=== PATIENT | female | born 1985 | race African-American/Black ===

== ENCOUNTER 2016-06-26 09:10 | Emergency (ER) | payer OTHER, MEDICAID ==
[~2016-06-26] VITALS: Ht 170.2 cm; Wt 154.0 kg
[~2016-06-26 09:10] MED LIST: CHLO.12%30 SSP; HYDR-3533 PO; MMW SWISH-SWAL; PENI500T PO
[2016-06-26 09:14] VITALS: BP 146/102; PULSE 89; RESP 18; TEMP 97.9; O2SAT 98
[2016-06-26] MEDS ORDERED: TRAM50TA PO (09:27)
[2016-06-26] MEDS ORDERED: CYCL1TAB29 PO (09:27)
[2016-06-26] MEDS ORDERED: MOBI7.5T PO (09:27)
[2016-06-26] MEDS ORDERED: HYDR-3535 PO (09:38)
[2016-06-26] MEDS ORDERED: HYDROmorphone HCL PF 1 MG/ML VIAL IM ONE (09:45)
[2016-06-26] MEDS ORDERED: ONDANSETRON HCL 4 MG/2 ML VIAL IM ONE (09:45)
--- NOTE | 2016-06-26 09:46 | PD ---
HPI Chief Complaint: Back/ Neck Pain or Injury Time Seen by Provider: 09:23 Travel History International Travel<30 days: No Contact w/Intl Traveler<30days: No Traveled to known affect area: No History of Present Illness HPI This 30-year-old female is complaining of low back pain. She has a history of back pain. She had a Workmen's Compensation injury in July. 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 She had an MRI in March which showed bulging disks. She has been seeing an orthopedic doctor in [place]. She uses a back brace. She has tramadol, Flexeril and low back. She has been taking the medication. She has been having increasing pain since yesterday. The medication does not seem to be helping. She says that the tramadol has not seemed to be very effective for her. The pain shoots down her left leg. She says that her orthopedic doctor is going to schedule her for some injections in the back PFSH Past Medical History Hx Anticoagulant Therapy: No Blood Disorders: No Cardiovascular Problems: No Chemotherapy: No Cerebrovascular Accident: No Diabetes: No Diminished Hearing: No Hypertension: Yes Respiratory: No Immunizations Current: Yes Tetanus Vaccination: Unknown ?: Not LMP: 06/21/2016 : 5 Para: 3 Miscarriage: 11 Past Surgical History Section: Yes (X3) Cholecystectomy: Yes Hysterectomy: No Social History Alcohol Use: Yes (OCCASIONAL) Tobacco Use: No Substance Use: No Allergies-Medications (Allergen,Severity, Reaction): Coded Allergies: Percocet (Verified Allergy, Unknown, RASH, 06/26/16) Reported Meds & Prescriptions Reported Meds & Active Scripts Active Lortab (Hydrocodone-Acetaminophen) 10-325 Mg Tab 1 Tab PO Q4H PRN Reported Mobic (Meloxicam) 7.5 Mg Tab 7.5 Mg PO DAILY Flexeril (Cyclobenzaprine HCl) 10 Mg Tab 10 Mg PO TID Tramadol (Tramadol HCl) 50 Mg Tab 50 Mg PO Q6H PRN Review of Systems General / Constitutional: No: Fever, Chills Eyes: No: Diploplia, Blurred Vision HENT: Positive: Headaches Cardiovascular: No: Chest Pain or Discomfort, Palpitations Respiratory: No: Cough, Shortness of Breath Gastrointestinal: No: Vomiting, Diarrhea Genitourinary: No: Urgency Musculoskeletal: Positive: Pain Skin: No Rash, No Itching Neurologic: No: Weakness, Focal Abnormalities Hematologic/Lymphatic: No: Easy Bruising Physical Exam Narrative GENERAL: Well-developed female SKIN: Warm and dry. There is some hyperpigmentation of the skin of the face HEAD: Atraumatic. Normocephalic. EYES: Pupils equal and round. No scleral icterus. No injection or drainage. ENT: No nasal bleeding or discharge. Mucous membranes pink and moist. NECK: Trachea midline. No JVD. CARDIOVASCULAR: Regular rate and rhythm. No murmur appreciated. RESPIRATORY: No accessory muscle use. Clear to auscultation. Breath sounds equal bilaterally. GASTROINTESTINAL: Abdomen soft, non-tender, nondistended. Hepatic and splenic margins not palpable. MUSCULOSKELETAL: No obvious deformities. No clubbing. No cyanosis. No edema. She has some low back tenderness. She has pain with movement. Straight leg raising is painful bilaterally at 30.Good strength in plantar and dorsi flexion. she says the left leg has less sensation that the right NEUROLOGICAL: Awake and alert. No obvious cranial nerve deficits. Motor grossly within normal limits. Normal speech. PSYCHIATRIC: Appropriate mood and affect; insight and judgment normal. Data Data Last Documented VS Vital Signs Date Time Temp Pulse Resp B/P Pulse Ox O2 Delivery O2 Flow Rate FiO2 06/26/16 09:14 97.9 89 18 146/102 98 Orders Hydromorphone Pf Inj (Dilaudid Pf Inj) (06/26/16 09:45) Ondansetron Inj (Zofran Inj) (06/26/16 09:45) MDM Medical Decision Making Medical Screen Exam Complete: Yes Emergency Medical Condition: Yes Medical Record Reviewed: Yes Differential Diagnosis Differential includes HNP, exacerbation of chronic back pain Narrative Course Patient had an MRI in March. She is seeing an orthopedist. She does appear quite uncomfortable now on the tramadol has not been helping her. I will write a prescription for some Lortab and follow-up with her orthopedic doctor in [place] Diagnosis Primary Impression: Acute exacerbation of chronic low back pain Scripts Hydrocodone-Acetaminophen (Lortab)10-325 Mg Tab1 Tab PO Q4H PRN (PAIN) #30 TAB Ref 0 Prov:Macario Miller MD 06/26/16 Disposition: 01 DISCHARGE HOME Condition: Stable Macario Miller MD Jun 26, 2016 09:46
[2016-06-26 10:39] VITALS: BP 180/111
== END 2016-06-26 10:44 | disposition home or self-care (01) ==
LOC: PHED 09:10
DX: M54.5 Low back pain (principal); I10 Essential (primary) hypertension
CPT/HCPCS: 96372; 99283; J1170; J2405

== ENCOUNTER 2016-07-24 20:51 | Emergency (ER) | payer MEDICAID, OTHER ==
[~2016-07-24] VITALS: Ht 170.2 cm; Wt 154.6 kg
[~2016-07-24 20:51] MED LIST changes: -CHLO.12%30 SSP; +CYCL1TAB29 PO; -HYDR-3533 PO; +HYDR-3535 PO; -MMW SWISH-SWAL; +MOBI7.5T PO; -PENI500T PO; +TRAM50TA PO
[2016-07-24 21:00] VITALS: BP 170/109; PULSE 90; RESP 18; TEMP 98.6; O2SAT 99
[2016-07-24] MEDS ORDERED: ERYTHROMYCIN 0.5% OPTH OINT 3.5 GM TUBO RIGHT EYE ONE (21:45)
[2016-07-24] MEDS ORDERED: ERYTOIN10 RIGHT EYE (22:04)
--- NOTE | 2016-07-24 22:05 | PD ---
HPI Chief Complaint: Eye Problems/Injury Time Seen by Provider: 21:15 Travel History International Travel<30 days: No Contact w/Intl Traveler<30days: No Traveled to known affect area: No History of Present Illness HPI Patient's a 30 year female who presents emergency for evaluation of right eye burning. Patient states she woke up this morning and her eye was crusted, since that time she's had photophobia and a burning sensation. Patient denies any fever, chills, nausea, vomiting, chest pain, shortness of breath, headaches. She denies any visual changes, patient does not wear contact lenses , she states she was told she had high blood pressure in the past, she is not on any medications currently. PFSH Past Medical History Hx Anticoagulant Therapy: No Blood Disorders: No Cardiovascular Problems: No Chemotherapy: No Cerebrovascular Accident: No Diabetes: No Diminished Hearing: No Hypertension: Yes Respiratory: No Immunizations Current: Yes ?: Not LMP: LAST WEEK : 5 Para: 3 Miscarriage: 11 Past Surgical History Section: Yes (X3) Cholecystectomy: Yes Hysterectomy: No Social History Alcohol Use: Yes (OCCASIONAL) Tobacco Use: No Substance Use: No Allergies-Medications (Allergen,Severity, Reaction): Coded Allergies: Percocet (Verified Allergy, Unknown, RASH, 07/24/16) Reported Meds & Prescriptions Reported Meds & Active Scripts Active Reported Tramadol (Tramadol HCl) 50 Mg Tab 50 Mg PO Q6H PRN Review of Systems Except as stated in HPI: all other systems reviewed are Neg Eyes: Positive: Photophobia, Redness, Pain (burning pain), No: Diploplia, Blurred Vision, Foreign Body Sensation, Visual changes Physical Exam Narrative GENERAL: Well-nourished, well-developed patient. SKIN: Warm and dry. HEAD: Normocephalic. EYES: No scleral icterus. Mild injection in the right eye, pupil is equal, round, reactive. Fluorescein eye exam did not reveal any abrasions, ulcerations or dendritic lesions. Extraocular movements are intact. Cornea is clear. NECK: Supple, trachea midline. No JVD or lymphadenopathy. CARDIOVASCULAR: Regular rate and rhythm without murmurs, gallops, or rubs. RESPIRATORY: Breath sounds equal bilaterally. No accessory muscle use. GASTROINTESTINAL: Abdomen soft, non-tender, nondistended. MUSCULOSKELETAL: No cyanosis, or edema. BACK: Nontender without obvious deformity. No CVA tenderness. Data Data Last Documented VS Vital Signs Date Time Temp Pulse Resp B/P Pulse Ox O2 Delivery O2 Flow Rate FiO2 07/24/16 21:00 98.6 90 18 170/109 99 Orders Erythromycin 0.5% Opth Oint (Ilotycin 0. (07/24/16 21:45) [facility] Medical Decision Making Medical Screen Exam Complete: Yes Emergency Medical Condition: Yes Interpretation(s) Vital Signs Date Time Temp Pulse Resp B/P Pulse Ox O2 Delivery O2 Flow Rate FiO2 07/24/16 21:00 98.6 90 18 170/109 99 Differential Diagnosis Scleritis versus angle closure glaucoma versus iritis versus conjunctivitis versus other Narrative Course Patient is a 30 year old female who presented to emergency room for evaluation of right eye burning that started this morning upon awakening. Right eye is mildly erythematous, no drainage noted, no abrasions, ulcerations, dendritic lesions. Vision is intact. Patient does not wear contact lenses. Discussed with my attending physician who also evaluated patient. Paged the on-call oven laborer, Dr. Reese who recommended erythromycin ointment and follow-up in the office. Patient was given a dose of erythromycin ointment in the emergency room, she will be provided with a prescription for the same. She is encouraged to follow-up with Dr. Reese in his office tomorrow. Mandatory referral will be made for her. Patient was advised to come back to emergency department for any new or worsening symptoms or if she was unable to be evaluated by the oven laborer. Patient is stable for discharge. Diagnosis Primary Impression: Photophobia, right eye Additional Impression: Conjunctivitis Qualified Code: H10.9 - Conjunctivitis of right eye, unspecified conjunctivitis type Referrals: Syed Bright MD 1 day Call the office in the morning to schedule a follow-up appointment Additional Instructions: Follow-up with Dr. Dangelo tomorrow Use antibiotic ointment as directed Return to emergency department for any new or worsening symptoms or if you are unable to follow-up with a specialist and need to be reevaluated Med/Other Pt SpecificInfo: Prescription(s) given Scripts Erythromycin Opth Oint 5 Mg/Gm Oint1 Applic RIGHT EYE QID #1 TUBE Ref 0 Prov:Marlene Mcmanus 07/24/16 Disposition: 01 DISCHARGE HOME Condition: Stable YonathanMarleneYareli ARNP Jul 24, 2016 22:05
== END 2016-07-24 22:21 | disposition home or self-care (01) ==
LOC: PHEFT 20:51
DX: H53.149 Visual discomfort, unspecified (principal); H10.9 Unspecified conjunctivitis; I10 Essential (primary) hypertension
CPT/HCPCS: 99283

== ENCOUNTER 2016-10-14 12:09 | Emergency (ER) | payer OTHER ==
[~2016-10-14] VITALS: Ht 170.2 cm; Wt 154.0 kg
[~2016-10-14 12:09] MED LIST changes: -CYCL1TAB29 PO; +ERYTOIN10 RIGHT EYE; -HYDR-3535 PO; -MOBI7.5T PO
[2016-10-14 12:15] VITALS: BP 145/97; PULSE 91; RESP 16; TEMP 98.4; O2SAT 100
[2016-10-14] MEDS ORDERED: SODIUM CHLOR 0.9% 1000 ML INJ 1,000 ML IV SCH (12:38)
--- NOTE | 2016-10-14 12:43 | PD ---
HPI Chief Complaint: GI Complaint Time Seen by Provider: 12:39 Travel History International Travel<30 days: No Contact w/Intl Traveler<30days: No Traveled to known affect area: No History of Present Illness HPI Patient comes in complaining of left upper quadrant cramping abdominal pain that began last night. Patient reports associated nausea, vomiting, and diarrhea. Patient denies anything making it better or worse. Patient reports 4 episodes of loose stool and 2 episodes of vomiting. Patient denies any blood in vomit or stool. Vomit is nonbilious. Denies any recent antibiotic use. Patient did note some blood on the toilet paper after voiding last night 2 episodes but denies being on her period currently or any since. Patient states she did put a pad in today but has had no blood or other discharge on it. Denies any chest pain, shortness breath, fevers, diaphoresis, headaches, numbness or tingling anywhere, or previous episodes like this. PFSH Past Medical History Hx Anticoagulant Therapy: No Blood Disorders: No Cardiovascular Problems: Yes (HTN) Chemotherapy: No Cerebrovascular Accident: No Diabetes: No Diminished Hearing: No Hypertension: Yes Respiratory: No Immunizations Current: Yes ?: Not LMP: Approx. 2 weeks ago : 5 Para: 3 Miscarriage: 11 Past Surgical History Section: Yes (X3) Cholecystectomy: Yes Hysterectomy: No Social History Alcohol Use: Yes (OCCASIONAL) Tobacco Use: No Substance Use: No Allergies-Medications (Allergen,Severity, Reaction): Coded Allergies: Percocet (Verified Allergy, Unknown, RASH, 10/14/16) Reported Meds & Prescriptions Reported Meds & Active Scripts Active Bentyl (Dicyclomine HCl) 20 Mg Tab 20 Mg PO Q8HR PRN Zofran Odt (Ondansetron Odt) 4 Mg Tab 4 Mg SL Q6HR PRN Reported Tramadol (Tramadol HCl) 50 Mg Tab 50 Mg PO Q6H PRN Review of Systems Except as stated in HPI: all other systems reviewed are Neg Physical Exam Narrative GENERAL: Well-developed, overly nourished, in no acute distress, and non-ill appearing. SKIN: Focused skin assessment warm and dry. HEAD: Atraumatic. Normocephalic. EYES: Pupils equal and round. EOMI. No scleral icterus. No injection or drainage. ENT: No nasal bleeding or discharge. Mucous membranes pink and moist. NECK: Trachea midline. Supple. No nuclear rigidity. CARDIOVASCULAR: Regular rate and rhythm. No murmur appreciated. RESPIRATORY: No accessory muscle use. No respiratory distress. Clear to auscultation. Breath sounds equal bilaterally. GASTROINTESTINAL: Abdomen soft, nondistended. Hepatic and splenic margins not palpable. Normal bowel sounds 4. No pulsatile mass. Patient reports tenderness to palpation epigastrium and left upper quadrant. MUSCULOSKELETAL: No obvious deformities. No clubbing. No cyanosis. No edema. Full range of motion. NEUROLOGICAL: Awake and alert. No obvious cranial nerve deficits. Motor grossly within normal limits. Normal speech. PSYCHIATRIC: Appropriate mood and affect; insight and judgment normal. Data Data Last Documented VS Vital Signs Date Time Temp Pulse Resp B/P Pulse Ox O2 Delivery O2 Flow Rate FiO2 10/14/16 13:58 100 10/14/16 12:15 98.4 91 16 145/97 Orders Complete Blood Count With Diff (10/14/16 12:38) Comprehensive Metabolic Panel (10/14/16 12:38) Lipase (10/14/16 12:38) Prothrombin Time / Inr (Pt) (10/14/16 12:38) Act Partial Throm Time (Ptt) (10/14/16 12:38) Urinalysis - C+S If Indicated (10/14/16 12:38) Iv Access Insert/Monitor (10/14/16 12:38) Ecg Monitoring (10/14/16 12:38) Oximetry (10/14/16 12:38) Ondansetron Inj (Zofran Inj) (10/14/16 12:45) Sodium Chlor 0.9% 1000 Ml Inj (Ns 1000 M (10/14/16 12:38) Sodium Chloride 0.9% Flush (Ns Flush) (10/14/16 12:45) Electrocardiogram (10/14/16 12:38) Chest, Single Ap (10/14/16 12:38) Ed Urine Pregnancytest Poc (10/14/16 12:38) Urine Culture (10/14/16 13:00) Labs Laboratory Tests Test 10/14/16 10/14/16 13:00 13:05 Urine Collection Type CLEAN CATCH Urine Color YELLOW Urine Turbidity CLEAR Urine pH 6.0 Urine Specific Isom 1.027 Urine Protein 30 mg/dL Urine Glucose (UA) NEG mg/dL Urine Ketones NEG mg/dL Urine Occult Blood TRACE Urine Nitrite NEG Urine Bilirubin NEG Urine Leukocyte Esterase NEG Urine RBC 4-9 /hpf Urine WBC 15-19 /hpf Urine Squamous Epithelial > 8 /hpf Cells Urine Bacteria MOD /hpf Microscopic Urinalysis Comment CULTURE INDICATED Urine Collection Time 13:00 White Blood Count 13.6 TH/MM3 Red Blood Count 4.37 MIL/MM3 Hemoglobin 11.4 GM/DL Hematocrit 33.9 % Mean Corpuscular Volume 77.6 FL Mean Corpuscular Hemoglobin 26.1 PG Mean Corpuscular Hemoglobin 33.6 % Concent Red Cell Distribution Width 14.2 % Platelet Count 422 TH/MM3 Mean Platelet Volume 7.7 FL Neutrophils (%) (Auto) 74.3 % Lymphocytes (%) (Auto) 19.7 % Monocytes (%) (Auto) 4.1 % Eosinophils (%) (Auto) 0.1 % Basophils (%) (Auto) 1.8 % Neutrophils # (Auto) 10.1 TH/MM3 Lymphocytes # (Auto) 2.7 TH/MM3 Monocytes # (Auto) 0.6 TH/MM3 Eosinophils # (Auto) 0.0 TH/MM3 Basophils # (Auto) 0.2 TH/MM3 CBC Comment DIFF FINAL Differential Comment Prothrombin Time 10.2 SEC Prothromb Time International 0.9 RATIO Ratio Activated Partial 26.3 SEC Thromboplast Time Sodium Level 141 MEQ/L Potassium Level 3.6 MEQ/L Chloride Level 103 MEQ/L Carbon Dioxide Level 31.0 MEQ/L Anion Gap 7 MEQ/L Blood Urea Nitrogen 15 MG/DL Creatinine 0.69 MG/DL Estimat Glomerular Filtration 121 ML/MIN Rate Random Glucose 122 MG/DL Calcium Level 9.4 MG/DL Total Bilirubin 0.2 MG/DL Aspartate Amino Transf 9 U/L (AST/SGOT) Alanine Aminotransferase 23 U/L (ALT/SGPT) Alkaline Phosphatase 65 U/L Total Protein 8.4 GM/DL Albumin 3.4 GM/DL Lipase 63 U/L [facility] Medical Decision Making Medical Screen Exam Complete: Yes Emergency Medical Condition: Yes Interpretation(s) EKG reviewed by Dr. Garner, shows normal sinus rhythm ventricular rate of 85. No STEMI. Differential Diagnosis Gastroenteritis, pancreatitis, electrolyte abnormality, diverticulitis, UTI, renal calculi, other Narrative Course The patient presented with abdominal pain vomiting and diarrhea. The patient appeared comfortable, hydrated and the abdominal exam was unremarkable and minimal to nontender to me, and without defined focal tenderness. Laboratory and radiographic evaluation revealed no significant abnormality. There was no evidence of an acute, surgical abdomen at this time. There was no clinical evidence to support bowel obstruction, cholecystitis/cholelithiasis, pancreatitis, perforation of gastric ulcer, colitis, diverticulitis, bacterial peritonitis, obstruction, volvulus, early appendicitis, or hernial incarceration or strangulation at this time. There was no evidence to support vascular pathology such as AAA, mesenteric ischemia, nor significant GIB. There was also no clinical evidence by history, exam or risk factors to suggest atypical presentation of cardiac disease such as ACS, AMI or atypical angina. No evidence to suggest genitourinary etiology as well. During the course of the ED visit the patient was given IVF, the patient noted improvement. The patient was able to tolerate fluids at discharge. Clinical picture was discussed with the patient, as well as plan of care. The patient was instructed to follow up with their physician. Abdominal pain warnings were discussed with the patient. The patient is to return if worsens, pain worsens or changes, develop fever, inability to tolerate fluids with or without vomiting, unable to establish follow up or as needed. The patient agrees with plan. Patient in no obvious distress upon re-evaluation and playing with her cell phone. All pertinent laboratory/Radiology result(s) discussed with patient. Patient was asked if they wanted to speak to my attending, which the patient did not wish to do at this time. Any questions/concerns in reference to patient diagnosis/condition discussed and clarified prior to patient's discharge. Discussed patient with Dr. Garner prior to discharge, who reviewed patient's labs and is in agreement with plan care and disposition. Suspect urine is possibly contaminated with him the number squamous cells and we'll await culture prior to treating as the patient is asymptomatic for urinary symptoms and afebrile. Reinforced sheer importance of close follow up with patient's primary physician or primary care clinic. Instructed patient to return to ED immediately, if symptoms return/worsen. Pt showed understanding of above instructions. Further instructions and recommendations were detailed in discharge paperwork. Pt ambulated without difficulty out of ED at discharge. Diagnosis Primary Impression: Acute gastroenteritis Referrals: Warehouse Administrator Primary Care Physician Patient Instructions: Gastroenteritis (ED), General Instructions Additional Instructions: Follow-up with your primary care physician and/or personal financial planner in 2-3 days for reevaluation. Take all medication as prescribed. Drink plenty of non- caffeinated and nonalcoholic fluids. Return to the emergency department if symptoms get worse. Med/Other Pt SpecificInfo: Prescription(s) given Scripts Dicyclomine (Bentyl)20 Mg Tab20 Mg PO Q8HR PRN (ABDOMINAL CRAMPING) #12 TAB Ref 0 Prov:Jeimy Garner MD 10/14/16 Ondansetron Odt (Zofran Odt)4 Mg Tab4 Mg SL Q6HR PRN (Nausea/Vomiting) #12 TAB Ref 0 Prov:Jeimy Garner MD 10/14/16 Disposition: 01 DISCHARGE HOME Condition: Stable Kofi Odom Oct 14, 2016 12:43
[2016-10-14] MEDS ORDERED: SODIUM CHLORIDE 0.9% FLUSH 10 ML FLUSH IV FLUSH PRN (12:45)
[2016-10-14] MEDS ORDERED: ONDANSETRON HCL 4 MG/2 ML VIAL IVP ONE (12:45)
[2016-10-14 13:08] LABS: BLOOD, URINE TRACE (NEG); GLUCOSE,URINE NEG (NEG); KETONE, URINE NEG (NEG); NITRITE,URINE NEG (NEG)
[2016-10-14 13:19] LABS: METHOD OF COLLECTION CLEAN CATCH; URINE COLOR YELLOW (YELLW/STRAW)
[2016-10-14 13:20] LABS: AUTOMATED NEUTROPHIL # 10.1 TH/MM3 (1.8-7.7); BASOPHIL # 0.2 TH/MM3 (0-0.2); BASOPHIL % 1.8 % (0.0-2.0); EOSINOPHIL % 0.1 % (0.0-4.0); HEMATOCRIT 33.9 % (35.0-46.0); HEMO FLAGS DIFF FINAL; LYMPH % 19.7 % (9.0-44.0); LYMPHOCYTE # 2.7 TH/MM3 (1.0-4.8); MEAN CELL VOLUME 77.6 FL (80.0-100.0); MEAN CORPUSCULAR HEMOGLOBIN 26.1 PG (27.0-34.0); MEAN CORPUSCULAR HGB CONC 33.6 % (32.0-36.0); MONO % 4.1 % (0.0-8.0); NEUT % 74.3 % (16.0-70.0); PLATELET COUNT 422 TH/MM3 (150-450); RED BLOOD COUNT 4.37 MIL/MM3 (4.00-5.30); RED CELL DISTRIBUTION WIDTH 14.2 % (11.6-17.2); WHITE BLOOD COUNT 13.6 TH/MM3 (4.0-11.0)
[2016-10-14 13:20] LABS: BACTERIA, URINE MOD /hpf; COMMENT (UR) CULTURE INDICATED; CULTURE IF INDICATED CULTURE INDICATED; SQUAMOUS EPITHELIAL CELL URINE > 8 /hpf (0-5); WBC, URINE 15-19 /hpf (0-5)
--- NOTE | 2016-10-14 13:24 | RADHPO ---
EXAM DATE/TIME: 10/14/2016 12:54 [facility] COMPARISON: CHEST SINGLE AP, January 23, 2014, 0:13. INDICATIONS : Nausea, vomiting and upper abdominal pain. MEDICAL HISTORY : None. SURGICAL HISTORY : None. ENCOUNTER: Initial ACUITY: 2 days PAIN SCORE: 8/10 LOCATION: Bilateral upper chest FINDINGS: A single view of the chest demonstrates the lungs to be symmetrically aerated without evidence of mas s, infiltrate or effusion. The cardiomediastinal contours are unremarkable. Osseous structures are intact. There is no free air. CONCLUSION: No acute disease. Mega Levi MD on October 14, 2016 at 13:22 Board Certified Radiologist. This report was verified electronically.
[2016-10-14 13:31] LABS: CHLORIDE 103 MEQ/L (98-107); POTASSIUM 3.6 MEQ/L (3.5-5.1); SODIUM (NA) 141 MEQ/L (136-145)
[2016-10-14 13:35] LABS: APTT (PATIENT) 26.3 SEC (24.3-30.1); INTERNATIONAL NORMALIZED RATIO 0.9 RATIO; PROTHROMBIN TIME - PATIENT 10.2 SEC (9.8-11.6)
[2016-10-14 13:38] LABS: ANION GAP 7 MEQ/L (5-15); BLOOD UREA NITROGEN 15 MG/DL (7-18)
[2016-10-14 13:41] LABS: ALT (GPT) 23 U/L (10-53); AST (GOT) 9 U/L (15-37); GLOMERULAR FILTRATION RATE 121 ML/MIN (>89)
[2016-10-14 13:43] LABS: TOTAL BILIRUBIN ADULT 0.2 MG/DL (0.2-1.0)
[2016-10-14 13:44] LABS: ALKALINE PHOSPHATASE 65 U/L (45-117)
[2016-10-14 13:58] VITALS: O2SAT 100
[2016-10-14] MEDS ORDERED: ZOFR4TAB3 SL (14:02)
[2016-10-14] MEDS ORDERED: BENT20TA PO (14:02)
--- NOTE | 2016-10-15 19:30 | EKG ---
Date Performed: 10/14/2016 Time Performed: 12:45:22 PTAGE: 31 years EKG: Sinus rhythm Normal ECG PREVIOUS TRACING : 01/23/2014 00.16 Compared to prior tracing no significant change DOCTOR: Abigail Ma Interpretating Date/Time 10/15/2016 19:29:27
== END 2016-10-14 14:13 | disposition home or self-care (01) ==
LOC: PHEFT 12:09
DX: K52.9 Noninfective gastroenteritis and colitis, unspecified (principal); I10 Essential (primary) hypertension
CPT/HCPCS: 71010; 80053; 81001; 83690; 84703; 85025; 85610; 85730; 87077; 87086; 87186; 93005; 96361; 96374; 99284; J2405; J7030

== ENCOUNTER 2016-11-23 08:23 | Emergency (ER) | payer OTHER ==
[~2016-11-23] VITALS: Ht 170.2 cm; Wt 158.0 kg
[~2016-11-23 08:23] MED LIST changes: +BENT20TA PO; -ERYTOIN10 RIGHT EYE; +ZOFR4TAB3 SL
[2016-11-23 08:32] VITALS: BP 152/101; PULSE 95; RESP 18; TEMP 98.2; O2SAT 98
[2016-11-23] MEDS ORDERED: SODIUM CHLORIDE 0.9% FLUSH 10 ML FLUSH IV FLUSH PRN (08:45)
[2016-11-23] MEDS ORDERED: KETOROLAC TROMETHAMINE 30 MG/ML (IVP) VIAL IV PUSH ONE (08:45)
[2016-11-23] MEDS ORDERED: ONDANSETRON HCL 4 MG/2 ML VIAL IVP ONE (08:45)
--- NOTE | 2016-11-23 08:49 | PD ---
HPI Chief Complaint: GI Complaint Time Seen by Provider: 08:39 Travel History International Travel<30 days: No Contact w/Intl Traveler<30days: No Traveled to known affect area: No History of Present Illness HPI The patient was seen and examined in the presence of the nurse. This patient complains of nausea vomiting diarrhea and epigastric pain. Started yesterday. Duration 24 hours. 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 No fever. No lower quadrant abdominal pains. She has had her gallbladder removed. Severity is moderate. No alleviating factors PFSH Past Medical History Hx Anticoagulant Therapy: No Blood Disorders: No Cardiovascular Problems: Yes (HTN) Chemotherapy: No Cerebrovascular Accident: No Diabetes: No Diminished Hearing: No Hypertension: Yes Musculoskeletal: Yes (CHRONIC BACK PAIN) Respiratory: No Immunizations Current: Yes Influenza Vaccination: No ?: Unknown LMP: 11/03/2016 : 5 Para: 3 Miscarriage: 11 Past Surgical History Section: Yes (X3) Cholecystectomy: Yes Hysterectomy: No Social History Alcohol Use: Yes (WEEKLY) Tobacco Use: No Substance Use: No Allergies-Medications (Allergen,Severity, Reaction): Coded Allergies: Percocet (Verified Allergy, Unknown, RASH, 11/23/16) Reported Meds & Prescriptions Reported Meds & Active Scripts Active Reported Tramadol (Tramadol HCl) 50 Mg Tab 50 Mg PO Q6H PRN Review of Systems General / Constitutional: No: Fever Eyes: No: Visual changes HENT: No: Headaches Cardiovascular: No: Chest Pain or Discomfort Respiratory: No: Shortness of Breath Gastrointestinal: Positive: Nausea, Vomiting, Diarrhea, Abdominal Pain Genitourinary: No: Dysuria Musculoskeletal: No: Pain Skin: No Rash Neurologic: No: Weakness Psychiatric: No: Depression Endocrine: No: Polydipsia Hematologic/Lymphatic: No: Easy Bruising Physical Exam Narrative GENERAL: Well-nourished, well-developed patient in no apparent distress. SKIN: Focused skin assessment reveals no rash and nodules. Skin is Warm and dry. HEAD: Atraumatic. Normocephalic. EYES: Pupils equal and round. No scleral icterus. No injection or drainage. ENT: No nasal bleeding or discharge. Mucous membranes pink and moist. NECK: Trachea midline. No JVD. CARDIOVASCULAR: Regular rate and rhythm. No murmur appreciated. RESPIRATORY: No accessory muscle use. Clear to auscultation. Breath sounds equal bilaterally. GASTROINTESTINAL: Abdomen soft, mild epigastric tenderness without rebound or guarding, nondistended. Hepatic and splenic margins not palpable. MUSCULOSKELETAL: No obvious deformities. No clubbing. No cyanosis. No edema. NEUROLOGICAL: Awake and alert. No obvious cranial nerve deficits. Motor grossly within normal limits. Normal speech. PSYCHIATRIC: Appropriate mood and affect; insight and judgment normal. Data Data Last Documented VS Vital Signs Date Time Temp Pulse Resp B/P Pulse Ox O2 Delivery O2 Flow Rate FiO2 11/23/16 10:21 16 11/23/16 08:32 98.2 95 152/101 98 Orders Beta Hcg (Quant/Titer) (11/23/16 08:45) Complete Blood Count With Diff (11/23/16 08:45) Comprehensive Metabolic Panel (11/23/16 08:45) Lipase (11/23/16 08:45) Iv Access Insert/Monitor (11/23/16 08:45) Ondansetron Inj (Zofran Inj) (11/23/16 08:45) Sodium Chloride 0.9% Flush (Ns Flush) (11/23/16 08:45) Ketorolac Inj (Toradol Inj) (11/23/16 08:45) Labs Laboratory Tests Test 11/23/16 09:15 White Blood Count 9.5 TH/MM3 Red Blood Count 4.37 MIL/MM3 Hemoglobin 11.2 GM/DL Hematocrit 34.5 % Mean Corpuscular Volume 79.1 FL Mean Corpuscular Hemoglobin 25.6 PG Mean Corpuscular Hemoglobin 32.4 % Concent Red Cell Distribution Width 14.4 % Platelet Count 344 TH/MM3 Mean Platelet Volume 7.4 FL Neutrophils (%) (Auto) 80.1 % Lymphocytes (%) (Auto) 15.1 % Monocytes (%) (Auto) 4.2 % Eosinophils (%) (Auto) 0.4 % Basophils (%) (Auto) 0.2 % Neutrophils # (Auto) 7.7 TH/MM3 Lymphocytes # (Auto) 1.4 TH/MM3 Monocytes # (Auto) 0.4 TH/MM3 Eosinophils # (Auto) 0.0 TH/MM3 Basophils # (Auto) 0.0 TH/MM3 CBC Comment DIFF FINAL Differential Comment Sodium Level 139 MEQ/L Potassium Level 3.8 MEQ/L Chloride Level 103 MEQ/L Carbon Dioxide Level 30.6 MEQ/L Anion Gap 5 MEQ/L Blood Urea Nitrogen 9 MG/DL Creatinine 0.67 MG/DL Estimat Glomerular Filtration 125 ML/MIN Rate Random Glucose 121 MG/DL Calcium Level 8.2 MG/DL Total Bilirubin 0.3 MG/DL Aspartate Amino Transf 10 U/L (AST/SGOT) Alanine Aminotransferase 18 U/L (ALT/SGPT) Alkaline Phosphatase 59 U/L Total Protein 7.5 GM/DL Albumin 2.9 GM/DL Lipase 46 U/L Human Chorionic Gonadotropin, LESS THAN 1 Quant MIU/ML MDM Medical Decision Making Medical Screen Exam Complete: Yes Emergency Medical Condition: Yes Medical Record Reviewed: Yes Differential Diagnosis Differential diagnosis includes pancreatitis, biliary colic, hepatitis, GERD, peptic ulcer disease. Narrative Course I have reviewed the patient's electronic medical record. Patient was last seen here September 2016. She was seen here June 2016 for flare up of chronic back pain IV placed CBC is normal Metabolic profile is normal LFTs are normal Lipase is normal Beta hCG is negative I gave her dose of IV Zofran and IV Toradol She drove herself here On recheck patient is feeling improved and her lab studies are all normal Prescribed her Zofran Expect she has a viral gastroenteritis or food poisoning and should resolve within 48 hours Diagnosis Primary Impression: Epigastric pain Additional Impression: Nausea vomiting and diarrhea Additional Instructions: The patient was advised to follow up with their physician and return if they worsen. I have recommended clear liquids for 24 hours, then gradually advance as tolerated. Med/Other Pt SpecificInfo: Prescription(s) given Scripts Ondansetron Odt (Zofran Odt)4 Mg Tab4 Mg SL Q6HR PRN (Nausea/Vomiting) #12 TAB Ref 0 Prov:Brayan Augustin MD 11/23/16 Disposition: 01 DISCHARGE HOME Condition: Stable Brayan Augustin MD Nov 23, 2016 08:49
[2016-11-23 09:22] LABS: AUTOMATED NEUTROPHIL # 7.7 TH/MM3 (1.8-7.7); BASOPHIL % 0.2 % (0.0-2.0); EOSINOPHIL % 0.4 % (0.0-4.0); HEMATOCRIT 34.5 % (35.0-46.0); HEMO FLAGS DIFF FINAL; LYMPH % 15.1 % (9.0-44.0); LYMPHOCYTE # 1.4 TH/MM3 (1.0-4.8); MEAN CELL VOLUME 79.1 FL (80.0-100.0); MEAN CORPUSCULAR HEMOGLOBIN 25.6 PG (27.0-34.0); MEAN CORPUSCULAR HGB CONC 32.4 % (32.0-36.0); MONO % 4.2 % (0.0-8.0); NEUT % 80.1 % (16.0-70.0); PLATELET COUNT 344 TH/MM3 (150-450); RED BLOOD COUNT 4.37 MIL/MM3 (4.00-5.30); RED CELL DISTRIBUTION WIDTH 14.4 % (11.6-17.2); WHITE BLOOD COUNT 9.5 TH/MM3 (4.0-11.0)
[2016-11-23 09:51] LABS: BICARBONATE 30.6 MEQ/L (21.0-32.0); BLOOD UREA NITROGEN 9 MG/DL (7-18)
[2016-11-23 09:54] LABS: GLOMERULAR FILTRATION RATE 125 ML/MIN (>89)
[2016-11-23 09:56] LABS: TOTAL BILIRUBIN ADULT 0.3 MG/DL (0.2-1.0)
[2016-11-23 09:57] LABS: ALKALINE PHOSPHATASE 59 U/L (45-117)
[2016-11-23 09:59] LABS: ANION GAP 5 MEQ/L (5-15); CHLORIDE 103 MEQ/L (98-107); POTASSIUM 3.8 MEQ/L (3.5-5.1); SODIUM (NA) 139 MEQ/L (136-145)
[2016-11-23 10:00] LABS: ALT (GPT) 18 U/L (10-53); BETA HCG QUANT LESS THAN 1 MIU/ML (0-5)
[2016-11-23 10:06] LABS: AST (GOT) 10 U/L (15-37)
[2016-11-23 10:21] VITALS: RESP 16
[2016-11-23] MEDS ORDERED: ZOFR4TAB3 SL (10:41)
[2016-11-23 10:51] VITALS: BP 132/79
== END 2016-11-23 10:57 | disposition home or self-care (01) ==
LOC: PHED 08:23
DX: R10.13 Epigastric pain (principal); R19.7 Diarrhea, unspecified; R11.2 Nausea with vomiting, unspecified
CPT/HCPCS: 80053; 83690; 84702; 85025; 96374; 96375; 99284; J1885; J2405

== ENCOUNTER 2017-04-24 11:59 | Emergency (ER) | payer MEDICAID, OTHER ==
[2017-04-24] VITALS (7 sets, daily range): BP systolic 109–194; BP diastolic 53–98; PULSE 92–111; RESP 16–40; TEMP 98; O2SAT 99–100
[~2017-04-24] VITALS: Ht 170.2 cm; Wt 160.0 kg
[~2017-04-24 11:59] MED LIST changes: -BENT20TA PO
--- NOTE | 2017-04-24 12:04 | PD ---
HPI Chief Complaint: Respiratory Symptoms Time Seen by Provider: 12:02 Travel History International Travel<30 days: No Contact w/Intl Traveler<30days: No Traveled to known affect area: No History of Present Illness HPI This 31-year-old female had an onset of shortness of breath shortly before arrival. 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 She is not aware of any unusual foods or any bites. The throat is tight. She is , she is not sure how far along. She has had morning sickness and the symptoms started soon after vomiting. She says her last period was in January. She has not had any bleeding. He is 6 para 3. She has had occasional bouts of hypertension past but is not on medications. PFSH Past Medical History Hx Anticoagulant Therapy: No Blood Disorders: No Cardiovascular Problems: Yes (HTN) Chemotherapy: No Cerebrovascular Accident: No Diabetes: No Diminished Hearing: No Hypertension: Yes Musculoskeletal: Yes (CHRONIC BACK PAIN) Respiratory: No Immunizations Current: Yes : 5 Para: 3 Miscarriage: 11 Past Surgical History Section: Yes (X3) Cholecystectomy: Yes Hysterectomy: No Social History Alcohol Use: Yes (WEEKLY) Tobacco Use: No Substance Use: No Allergies-Medications (Allergen,Severity, Reaction): Coded Allergies: acetaminophen (Unverified Allergy, Unknown, RASH, 01/31/17) oxycodone (Unverified Allergy, Unknown, RASH, 01/31/17) Reported Meds & Prescriptions Reported Meds & Active Scripts Active Zofran Odt (Ondansetron Odt) 4 Mg Tab 4 Mg SL Q6HR PRN Reported Tramadol (Tramadol HCl) 50 Mg Tab 50 Mg PO Q6H PRN Review of Systems General / Constitutional: No: Fever, Chills Eyes: No: Diploplia HENT: No: Headaches, Vertigo Cardiovascular: Positive: Chest Pain or Discomfort, No: Palpitations Respiratory: Positive: Shortness of Breath, No: Cough Gastrointestinal: No: Vomiting, Diarrhea Skin: No Rash, No Itching Hematologic/Lymphatic: No: Easy Bruising Physical Exam Narrative GENERAL: Well-developed female. She is in moderate respiratory distress. Her oxygen saturation is 100 percent SKIN: Focused skin assessment warm/dry. There is some urticaria around the mouth HEAD: Atraumatic. Normocephalic. EYES: Pupils equal and round. No scleral icterus. No injection or drainage. ENT: No nasal bleeding or discharge. Mucous membranes pink and moist. Pharynx is negative. He was not enlarged NECK: Trachea midline. No JVD. CARDIOVASCULAR: Regular rate and rhythm. No murmur appreciated. RESPIRATORY: There is accessory muscle use. Clear to auscultation. There is an occasional wheeze Breath sounds equal bilaterally. GASTROINTESTINAL: Abdomen soft, non-tender, nondistended. Hepatic and splenic margins not palpable. MUSCULOSKELETAL: No obvious deformities. No clubbing. No cyanosis. No edema. NEUROLOGICAL: Awake and alert. No obvious cranial nerve deficits. Motor grossly within normal limits. Normal speech. PSYCHIATRIC: Appropriate mood and affect; insight and judgment normal. Data Data Last Documented VS Vital Signs Date Time Temp Pulse Resp B/P (MAP) Pulse Ox O2 Delivery O2 Flow Rate FiO2 04/24/17 16:15 92 18 145/95 (112) 100 Room Air 04/24/17 12:05 98.0 Orders Orders Epinephrine (1:1000) Inj (Adrenalin (1:1 (04/24/17 12:15) Albuterol-Ipratropium Neb (Duoneb Neb) (04/24/17 12:15) Electrocardiogram (04/24/17 12:02) Complete Blood Count With Diff (04/24/17 12:02) Beta Hcg (Quant/Titer) (04/24/17 12:04) Diphenhydramine Inj (Benadryl Inj) (04/24/17 12:15) Basic Metabolic Panel (Bmp) (04/24/17 12:05) Troponin I (04/24/17 12:05) Potassium Chloride (Kcl) (04/24/17 13:00) Electrocardiogram (04/24/17 13:24) Troponin I (04/24/17 13:24) D-Dimer (04/24/17 13:24) Al-Mag Hy-Si 40-40-4 Mg/Ml Liq (Mag-Al P (04/24/17 13:30) Acetaminophen (Tylenol) (04/24/17 13:30) Us Leg Venous Doppler Bilat (04/24/17 14:22) Enoxaparin Inj (Lovenox Inj) (04/24/17 16:30) Ventilation & Perfusion Scan (04/24/17 16:17) Labs Laboratory Tests Test 04/24/17 12:05 White Blood Count 9.3 TH/MM3 Red Blood Count 4.02 MIL/MM3 Hemoglobin 10.3 GM/DL Hematocrit 31.0 % Mean Corpuscular Volume 77.0 FL Mean Corpuscular Hemoglobin 25.5 PG Mean Corpuscular Hemoglobin Concent 33.2 % Red Cell Distribution Width 14.5 % Platelet Count 403 TH/MM3 Mean Platelet Volume 7.6 FL Neutrophils (%) (Auto) 76.5 % Lymphocytes (%) (Auto) 19.8 % Monocytes (%) (Auto) 3.0 % Eosinophils (%) (Auto) 0.3 % Basophils (%) (Auto) 0.4 % Neutrophils # (Auto) 7.2 TH/MM3 Lymphocytes # (Auto) 1.8 TH/MM3 Monocytes # (Auto) 0.3 TH/MM3 Eosinophils # (Auto) 0.0 TH/MM3 Basophils # (Auto) 0.0 TH/MM3 CBC Comment DIFF FINAL Differential Comment D-Dimer Quantitative (PE/DVT) 1.00 MG/L FEU Blood Urea Nitrogen 11 MG/DL Creatinine 0.65 MG/DL Random Glucose 148 MG/DL Calcium Level 8.8 MG/DL Sodium Level 134 MEQ/L Potassium Level 3.4 MEQ/L Chloride Level 101 MEQ/L Carbon Dioxide Level 25.7 MEQ/L Anion Gap 7 MEQ/L Estimat Glomerular Filtration Rate 129 ML/MIN Troponin I LESS THAN 0.02 NG/ML Human Chorionic Gonadotropin, Quant [id number] MIU/ML MDM Medical Decision Making Medical Screen Exam Complete: Yes Emergency Medical Condition: Yes Medical Record Reviewed: Yes Differential Diagnosis Differential includes allergic reaction, acute bronchospasm, be Narrative Course My initial thought was that she was having an allergic reaction. She was in marked distress complaining of the tightness in her throat. She was given adrenaline initially followed by Benadryl. He settled down and seemed to be doing well. She then had a recurrence of the symptoms. This time she is complaining that her chest feels tight and that she can't take a deep breath. The troponin is negative. A repeat EKG is unchanged from previous. 2 troponins have been negative. I did order a d-dimer which has come back slightly elevated at 1.0. corrected d-dimer upper limit is 0.95. I have ordered an ultrasound to assess for possible thrombosis. Ultrasound shows nonocclusive likely chronic thrombus involving the right posterior tibial vein. I have discussed the case with the OB hospitalist and he recommends anticoagulation with Lovenox. He also recommends a VQ scan and if positive for PE he recommended admission Diagnosis Primary Impression: Deep vein thrombosis Macario Miller MD Apr 24, 2017 12:04
[2017-04-24] MEDS ORDERED: EPINEPHrine HCL (1:1000) 1 MG/ML VIAL IM ONE (12:15)
[2017-04-24] MEDS ORDERED: diphenhydrAMINE HCL 50 MG/ML VIAL IV PUSH ONE (12:15)
[2017-04-24] MEDS ORDERED: RESP: ALBUTEROL 2.5 MG/IPRATROPIUM 0.5 MG NEB (SCH) NEB ONE (12:15)
[2017-04-24 12:25] LABS: AUTOMATED NEUTROPHIL # 7.2 TH/MM3 (1.8-7.7); BASOPHIL % 0.4 % (0.0-2.0); EOSINOPHIL % 0.3 % (0.0-4.0); LYMPH % 19.8 % (9.0-44.0); LYMPHOCYTE # 1.8 TH/MM3 (1.0-4.8); MEAN CORPUSCULAR HEMOGLOBIN 25.5 PG (27.0-34.0); MEAN CORPUSCULAR HGB CONC 33.2 % (32.0-36.0); NEUT % 76.5 % (16.0-70.0); PLATELET COUNT 403 TH/MM3 (150-450); RED BLOOD COUNT 4.02 MIL/MM3 (4.00-5.30); RED CELL DISTRIBUTION WIDTH 14.5 % (11.6-17.2); WHITE BLOOD COUNT 9.3 TH/MM3 (4.0-11.0)
[2017-04-24 12:32] LABS: HEMO FLAGS DIFF FINAL
[2017-04-24 12:33] LABS: CHLORIDE 101 MEQ/L (98-107); POTASSIUM 3.4 MEQ/L (3.5-5.1); SODIUM (NA) 134 MEQ/L (136-145)
[2017-04-24 12:35] LABS: ANION GAP 7 MEQ/L (5-15); BICARBONATE 25.7 MEQ/L (21.0-32.0)
[2017-04-24 12:36] LABS: BLOOD UREA NITROGEN 11 MG/DL (7-18)
[2017-04-24 12:39] LABS: GLOMERULAR FILTRATION RATE 129 ML/MIN (>89)
[2017-04-24 12:55] LABS: BETA HCG QUANT 48826 MIU/ML (0-5)
[2017-04-24] MEDS ORDERED: POTASSIUM CHLORIDE 20 MEQ CONTROLLED RELEASE TAB PO ONE (13:00)
[2017-04-24] MEDS ORDERED: ACETAMINOPHEN 325 MG TAB PO ONE (13:30)
[2017-04-24] MEDS ORDERED: ALUMINUM/MAGNESIUM/SIMETH 30 ML CUP PO ONE (13:30)
--- NOTE | 2017-04-24 15:26 | RADRPT ---
EXAM DATE/TIME: 04/24/2017 14:30 [facility] COMPARISON: No previous studies available for comparison. INDICATIONS : Shortness of breath. MEDICAL HISTORY : Hypertension. . SURGICAL HISTORY : Cholecystectomy. section. ENCOUNTER: Initial ACUITY: 1 day PAIN SCORE: 6/10 LOCATION: Bilateral legs. TECHNIQUE: Venous ultrasound of the left and right leg was performed from the inguinal ligament to the proximal calf. Real-time, color Doppler and spectral tracing, compression and augmentation techniques were us ed. FINDINGS: RIGHT LEG: There is limited compressibility of the right posterior tibial vein. There is normal compressibility of the deep venous system from the inguinal region to the proximal calf. No echogenic clot is seen i n the lumen of the common femoral, femoral, and popliteal veins. There is a normal response of the v enous system to proximal and distal augmentation and respiration. LEFT LEG: Left posterior tibial vein not well demonstrated. There is normal compressibility of the deep venous system from the inguinal region to the proximal calf. No echogenic clot is seen in the lumen of the common femoral, femoral, and popliteal veins. There is a normal response of the venous system to pro ximal and distal augmentation and respiration. CONCLUSION: 1. Findings consistent with nonocclusive, likely chronic, thrombus involving the right posterior tibi al vein. 2. Left posterior tibial vein is not visualized. Although likely technical, chronic thrombosis will a lso mask small veins. Navid Rodriguez MD on April 24, 2017 at 15:21 Board Certified Radiologist. This report was verified electronically.
[2017-04-24] MEDS ORDERED: ENOXAPARIN SODIUM 150 MG/ML SYRINGE SQ ONE (16:30)
--- NOTE | 2017-04-24 16:35 | PD ---
Physical Exam Date Seen by Provider: Apr 24, 2017 Time Seen by Provider: 16:33 Narrative The patient is a 31-year-old female was initially evaluated by the previous physician, Dr. Cornejo. Please refer to the initial history, physical, diagnostic evaluation, and treatment modality plan. The patient was signed out at 4 PM with VQ scan pending for possible pulmonary embolism. The patient had a positive ultrasound for chronic DVT, has no history DVT. Dr. Cornejo spoke with the OB ED hospitalist who recommends a VQ scan and if positive for admission, if negative discharge home on Lovenox. The patient was signed out with VQ scan pending. Data Data Last Documented VS Vital Signs Date Time Temp Pulse Resp B/P (MAP) Pulse Ox O2 Delivery O2 Flow Rate FiO2 04/24/17 19:33 92 16 169/77 (107) 100 04/24/17 17:29 Room Air 04/24/17 12:05 98.0 Orders Orders Epinephrine (1:1000) Inj (Adrenalin (1:1 (04/24/17 12:15) Albuterol-Ipratropium Neb (Duoneb Neb) (04/24/17 12:15) Electrocardiogram (04/24/17 12:02) Complete Blood Count With Diff (04/24/17 12:02) Beta Hcg (Quant/Titer) (04/24/17 12:04) Diphenhydramine Inj (Benadryl Inj) (04/24/17 12:15) Basic Metabolic Panel (Bmp) (04/24/17 12:05) Troponin I (04/24/17 12:05) Potassium Chloride (Kcl) (04/24/17 13:00) Electrocardiogram (04/24/17 13:24) Troponin I (04/24/17 13:24) D-Dimer (04/24/17 13:24) Al-Mag Hy-Si 40-40-4 Mg/Ml Liq (Mag-Al P (04/24/17 13:30) Acetaminophen (Tylenol) (04/24/17 13:30) Us Leg Venous Doppler Bilat (04/24/17 14:22) Enoxaparin Inj (Lovenox Inj) (04/24/17 16:30) Chest, Single Ap (04/24/17 ) Lung Scan - Perfusion (04/24/17 16:17) Labs Laboratory Tests Test 04/24/17 12:05 White Blood Count 9.3 TH/MM3 Red Blood Count 4.02 MIL/MM3 Hemoglobin 10.3 GM/DL Hematocrit 31.0 % Mean Corpuscular Volume 77.0 FL Mean Corpuscular Hemoglobin 25.5 PG Mean Corpuscular Hemoglobin Concent 33.2 % Red Cell Distribution Width 14.5 % Platelet Count 403 TH/MM3 Mean Platelet Volume 7.6 FL Neutrophils (%) (Auto) 76.5 % Lymphocytes (%) (Auto) 19.8 % Monocytes (%) (Auto) 3.0 % Eosinophils (%) (Auto) 0.3 % Basophils (%) (Auto) 0.4 % Neutrophils # (Auto) 7.2 TH/MM3 Lymphocytes # (Auto) 1.8 TH/MM3 Monocytes # (Auto) 0.3 TH/MM3 Eosinophils # (Auto) 0.0 TH/MM3 Basophils # (Auto) 0.0 TH/MM3 CBC Comment DIFF FINAL Differential Comment D-Dimer Quantitative (PE/DVT) 1.00 MG/L FEU Blood Urea Nitrogen 11 MG/DL Creatinine 0.65 MG/DL Random Glucose 148 MG/DL Calcium Level 8.8 MG/DL Sodium Level 134 MEQ/L Potassium Level 3.4 MEQ/L Chloride Level 101 MEQ/L Carbon Dioxide Level 25.7 MEQ/L Anion Gap 7 MEQ/L Estimat Glomerular Filtration Rate 129 ML/MIN Troponin I LESS THAN 0.02 NG/ML Human Chorionic Gonadotropin, Quant [id number] MIU/ML [facility] Medical Record Reviewed: Yes Supervised Visit with EDWINA: No Interpretation(s) Last Impressions Lower Extremity Ultrasound 04/24/17 1422 Signed Impressions: Service Date/Time: Monday, April 24, 2017 14:30 - CONCLUSION: 1. Findings consistent with nonocclusive, likely chronic, thrombus involving the right posterior tibial vein. 2. Left posterior tibial vein is not visualized. Although likely technical, chronic thrombosis will also mask small veins. Navid Rodriguez MD Laboratory Tests Test 04/24/17 12:05 White Blood Count 9.3 TH/MM3 Red Blood Count 4.02 MIL/MM3 Hemoglobin 10.3 GM/DL Hematocrit 31.0 % Mean Corpuscular Volume 77.0 FL Mean Corpuscular Hemoglobin 25.5 PG Mean Corpuscular Hemoglobin Concent 33.2 % Red Cell Distribution Width 14.5 % Platelet Count 403 TH/MM3 Mean Platelet Volume 7.6 FL Neutrophils (%) (Auto) 76.5 % Lymphocytes (%) (Auto) 19.8 % Monocytes (%) (Auto) 3.0 % Eosinophils (%) (Auto) 0.3 % Basophils (%) (Auto) 0.4 % Neutrophils # (Auto) 7.2 TH/MM3 Lymphocytes # (Auto) 1.8 TH/MM3 Monocytes # (Auto) 0.3 TH/MM3 Eosinophils # (Auto) 0.0 TH/MM3 Basophils # (Auto) 0.0 TH/MM3 CBC Comment DIFF FINAL Differential Comment D-Dimer Quantitative (PE/DVT) 1.00 MG/L FEU Blood Urea Nitrogen 11 MG/DL Creatinine 0.65 MG/DL Random Glucose 148 MG/DL Calcium Level 8.8 MG/DL Sodium Level 134 MEQ/L Potassium Level 3.4 MEQ/L Chloride Level 101 MEQ/L Carbon Dioxide Level 25.7 MEQ/L Anion Gap 7 MEQ/L Estimat Glomerular Filtration Rate 129 ML/MIN Troponin I LESS THAN 0.02 NG/ML Human Chorionic Gonadotropin, Quant [id number] MIU/ML VQ scan reveals normal perfusion scan of both lungs. This makes PE unlikely. Differential Diagnosis Differential diagnosis includes DVT, pulmonary embolism, cardiomyopathy, congestive heart failure, bronchitis, morbid obesity. Narrative Course The patient was initially evaluated by the previous physician, Dr. Cornejo. Please refer to the initial history, physical, diagnostic evaluation, and treatment modality plan. The patient presented with shortness of breath, had a positive d-dimer. The patient had ultrasound which revealed a lower extremity chronic DVT, no history of previous DVT. Dr. Cornejo spoke with the ED hospitalists who recommends Lovenox and a VQ scan. ED hospitals also recommends admission a VQ scan is positive and discharged home on Lovenox if negative. Patient was signed out of VQ scan pending. VQ scan is negative. The patient will be discharged home on Lovenox 150 mg twice a day. She is advised to follow-up with her primary physician. Please provide a patient a copy of her V/Q's results, ultrasound results, and lab results at discharge. 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 Please provide the patient a copy of her ultrasound results and VQ scan results at discharge. Follow-up with your policy writer typist and primary physician. Med/Other Pt SpecificInfo: Prescription(s) given Scripts Enoxaparin Inj (Lovenox Inj) 150 Mg/Ml Syr 150 MG SQ BID for Blood Clot Prevention for 90 Days, SYRINGE 0 Refills Prov: Nima Childers MD 04/24/17 Disposition: 01 DISCHARGE HOME Condition: Stable Nima Childers MD Apr 24, 2017 16:35
--- NOTE | 2017-04-24 17:57 | RADRPT ---
EXAM DATE/TIME: 04/24/2017 17:41 [facility] COMPARISON: CHEST SINGLE AP, October 14, 2016, 12:54. INDICATIONS : Shortness of breath. MEDICAL HISTORY : Hypertension. SURGICAL HISTORY : None. ENCOUNTER: Initial ACUITY: 1 day PAIN SCORE: 0/10 LOCATION: Bilateral chest FINDINGS: A single view of the chest demonstrates the lungs to be symmetrically aerated without evidence of mas s, infiltrate or effusion. The cardiomediastinal contours are unremarkable. Osseous structures are intact. CONCLUSION: No acute disease. Ruiz Nieto MD FACR on April 24, 2017 at 17:54 Board Certified Radiologist. This report was verified electronically.
--- NOTE | 2017-04-24 20:01 | RADRPT ---
EXAM DATE/TIME: 04/24/2017 18:38 [facility] COMPARISON: CHEST SINGLE AP, April 24, 2017, 17:41. US LEG BILATERAL VENOUS DOPPLER, April 24, 2017, 14:30 . INDICATIONS : Dyspnea. DOSE: 1 mCi Tc99m Labeled MAA IV MEDICAL HISTORY : Hypertension. SURGICAL HISTORY : section. Cholecystectomy. ENCOUNTER: Initial ACUITY: 1 day PAIN SCALE: 0/10 LOCATION: chest TECHNIQUE: The patient was injected with MAA, and eight-view perfusion scan was performed. FINDINGS: PERFUSION: There is a homogenous pattern of radiotracer uptake throughout both lungs. CONCLUSION: Normal perfusion scan of both lungs. This makes PE unlikely. Elmer Singletary MD on April 24, 2017 at 19:58 Board Certified Radiologist. This report was verified electronically.
[2017-04-24] MEDS ORDERED: ENOX150P SQ (20:07)
--- NOTE | 2017-04-25 19:34 | EKG ---
Date Performed: 04/24/2017 Time Performed: 12:04:24 PTAGE: 31 years EKG: Sinus rhythm BASELINE ARTIFACT Compared to prior tracing no significant change NORMAL ECG PREVIOUS TRACING 10/14/2016 @ 12.45 DOCTOR: Griselda Mayo Interpretating Date/Time 04/25/2017 19:33:07
--- NOTE | 2017-04-25 19:36 | EKG ---
Date Performed: 04/24/2017 Time Performed: 13:29:00 PTAGE: 31 years EKG: Sinus rhythm NONSPECIFIC ST T-WAVE CHANGES Compared to prior tracing no significant change BORDERLINE ECG PREVIOUS TRACING 04/24/2017 @ 12.04 DOCTOR: Griselda Mayo Interpretating Date/Time 04/25/2017 19:34:49
== END 2017-04-24 20:15 | disposition home or self-care (01) ==
LOC: PHED 11:59
DX: O22.30 Deep phlebothrombosis in pregnancy, unspecified trimester (principal); I82.441 Acute embolism and thrombosis of right tibial vein; Z3A.00 Weeks of gestation of pregnancy not specified; I10 Essential (primary) hypertension; R94.31 Abnormal electrocardiogram [ECG] [EKG]; Z79.899 Other long term (current) drug therapy
CPT/HCPCS: 71010; 78580; 80048; 84484; 84702; 85025; 85379; 93005; 93970; 94664; 96372; 96374; 99285; A9540; J0171; J1200; J1650

== ENCOUNTER 2017-06-27 07:15 | Emergency (ER) | payer MEDICAID ==
[~2017-06-27 07:15] MED LIST changes: +ENOX150P SQ
[2017-06-27 07:23] VITALS: BP 145/81; PULSE 106; RESP 20; TEMP 98.8; O2SAT 98
[2017-06-27 08:11] VITALS: BP 90/56; PULSE 102
[2017-06-27] MEDS ORDERED: LACTATED RINGER'S 1000 ML INJ 1,000 ML IV SCH (08:15)
[2017-06-27] MEDS ORDERED: ONDANSETRON HCL 4 MG/2 ML VIAL IV PUSH ONE (08:15)
--- NOTE | 2017-06-27 08:15 | PD ---
HPI Chief Complaint nausea and vomitting for 20 weeks of worse today Date Seen: Jun 27, 2017 Time Seen: 08:05 Travel History International Travel<30 Days: No Contact w/Intl Traveler<30Days: No Known Affected Area: No History of Present Illness HPI 31 yo BF with care at [facility]. she has had severe nausea and vomiting the whole . She has tried phenergan and zofran and diclegis. Today she is worse than usual and she can't keep anything down Weeks Gestation: 20 Para: 3 : 6 History Past Medical History Medical History: Denies Significant Hx Obstetric History Obstetric History cs x3 Past Surgical History Surgical History: No Previous Surgery Family History Family History: Negative Social History Alcohol Use: No Tobacco Use: No Substance Abuse: No Allergies-Medications (Allergen,Severity, Reaction): Coded Allergies: acetaminophen (Unverified Allergy, Unknown, RASH, 01/31/17) oxycodone (Unverified Allergy, Unknown, RASH, 01/31/17) Home Meds Active Scripts Enoxaparin Inj (Lovenox Inj) 150 Mg/Ml Syr, 150 MG SQ BID for Blood Clot Prevention for 90 Days, SYRINGE 0 Refills Prov:Nima Childers MD 04/24/17 Ondansetron Odt (Zofran Odt) 4 Mg Tab, 4 MG SL Q6HR Y for Nausea/Vomiting, #12 TAB 0 Refills Prov:Brayan Augustin MD 11/23/16 Reported Medications Tramadol (Tramadol) 50 Mg Tab, 50 MG PO Q6H Y for PAIN, TAB 0 Refills 06/26/16 Review of Systems Except as stated in HPI: all other systems reviewed are Neg Gastrointestinal: Nausea, Vomiting Physical Exam Vital Signs Date Time Temp Pulse Resp B/P (MAP) Pulse Ox O2 Delivery O2 Flow Rate FiO2 06/27/17 07:23 98.8 106 20 145/81 (102) 98 Narrative GENERAL: Well-nourished, well-developed patient. SKIN: Warm and dry. HEAD: Normocephalic and atraumatic. EYES: No scleral icterus. No injection or drainage. ENT: No nasal drainage noted. Mucous membranes pink. Airway patent. NECK: Supple, trachea midline. No JVD. CARDIOVASCULAR: Regular rate and rhythm without murmurs, gallops, or rubs. RESPIRATORY: Breath sounds equal bilaterally. No accessory muscle use. BREASTS: Bilateral exam showed no masses , no retractions, no nipple discharge. ABDOMEN/GI: Abdomen soft, non-tender, bowel sounds present, no rebound, no guarding Gravid to 20 weeks size obese Fundal Height: [-] GENITOURINARY: External Genitalia: intact and normal in appearance BUS glands: [-] Cervix: deferred Dilatation: [-] Effacement: [-] Station: [-] Presentation: [-] Membranes: [intact Uterine Contractions: [-] FHT's: Category: present Baseline: [-] Reactive: [-] Variability: [-] Decels: [-] EXTREMITIES: No cyanosis or edema. BACK: Nontender without obvious deformity. No CVA tenderness. NEUROLOGICAL: Awake and alert. Motor and sensory grossly within normal limits. Five out of 5 muscle strength in all muscle groups. Normal speech. Data Data Vital Signs Reviewed: Yes [facility] Medical Record Reviewed: No Interpretation(s) 20 weeks with nausea and vomiting. Plan hydrate and give IV zofran and check labs Elmer Hernandes MD Jun 27, 2017 08:14
[2017-06-27 08:39] LABS: AUTOMATED NEUTROPHIL # 7.5 TH/MM3 (1.8-7.7); BASOPHIL # 0.1 TH/MM3 (0-0.2); BASOPHIL % 0.6 % (0.0-2.0); EOSINOPHIL % 0.2 % (0.0-4.0); HEMATOCRIT 29.9 % (35.0-46.0); HEMOGLOBIN 10.1 GM/DL (11.6-15.3); LYMPH % 17.6 % (9.0-44.0); LYMPHOCYTE # 1.7 TH/MM3 (1.0-4.8); MEAN CORPUSCULAR HEMOGLOBIN 26.3 PG (27.0-34.0); MEAN CORPUSCULAR HGB CONC 33.8 % (32.0-36.0); MEAN PLATELET VOLUME 7.4 FL (7.0-11.0); MONO % 3.8 % (0.0-8.0); MONOCYTE # 0.4 TH/MM3 (0-0.9); NEUT % 77.8 % (16.0-70.0); PLATELET COUNT 371 TH/MM3 (150-450); RED BLOOD COUNT 3.83 MIL/MM3 (4.00-5.30); RED CELL DISTRIBUTION WIDTH 14.4 % (11.6-17.2); WHITE BLOOD COUNT 9.6 TH/MM3 (4.0-11.0)
[2017-06-27 08:52] LABS: ALBUMIN 2.7 GM/DL (3.4-5.0); ALT (GPT) 15 U/L (10-53); AST (GOT) 5 U/L (15-37); BICARBONATE 24.3 MEQ/L (21.0-32.0); CALCIUM 8.9 MG/DL (8.5-10.1); CHLORIDE 101 MEQ/L (98-107); CREATININE 0.44 MG/DL (0.50-1.00); GLOMERULAR FILTRATION RATE 203 ML/MIN (>89); GLUCOSE,RANDOM 137 MG/DL (74-106); SODIUM (NA) 134 MEQ/L (136-145)
[2017-06-27 08:58] LABS: BACTERIA, URINE RARE /hpf; BILIRUBIN, URINE NEG (NEG); BLOOD, URINE NEG (NEG); GLUCOSE,URINE NEG (NEG); KETONE, URINE NEG (NEG); MUCUS URINE FEW /lpf (OCC); NITRITE,URINE NEG (NEG); PH, URINE 6.5 (5.0-8.5); SQUAMOUS EPITHELIAL CELL URINE 10 /hpf (0-5); URINE COLOR YELLOW (YELLW/STRAW); URINE LEUKOCYTE ESTERASE NEG (NEG)
[2017-06-27 09:01] LABS: ALKALINE PHOSPHATASE 58 U/L (45-117); BLOOD UREA NITROGEN 8 MG/DL (7-18); TOTAL BILIRUBIN ADULT 0.2 MG/DL (0.2-1.0); TOTAL PROTEIN 7.8 GM/DL (6.4-8.2)
[2017-06-27] MEDS ORDERED: ZOFR8TAB4 SL (11:38)
[2017-06-27] MEDS ORDERED: RANI150T PO (11:38)
[2017-06-27] MEDS ORDERED: DOXY10TA PO (11:38)
--- NOTE | 2017-06-27 11:38 | PD ---
HPI Chief Complaint nausea/vomiting Date Seen: Jun 27, 2017 Travel History International Travel<30 Days: No Contact w/Intl Traveler<30Days: No Known Affected Area: No History of Present Illness HPI Ms. Lamb is a 31 yo at 20 4/7 weeks who presens with nausea/vomiting. Patient obtains care [facility]; she reports history of frequent nausea/vomiting. Patient has had periodic vomiting since the start of but it is recently worsened and she has been unable to keep foods down since yesterday evening. Patient also reports bilateral lower abdominal pain which she states is worse on her left side. Patient has sought previous treatment several times for nausea/vomiting; she is previously been prescribed Zofran/Phenergan without relief. Patient also previously took Diclegis without relief. Patient was last evaluated at [facility] in approximately 04/2017. Patient does not report fever/chills, dysuria, back pain, normal bowel movements. No vaginal bleeding, vaginal discharge, or loss of vaginal fluid. Weeks Gestation: 20 Para: 3 : 6 History Past Medical History Narrative Medical Gestational diabetes with prior Patient reports some history of hypertension with prior gestation Obstetric History Obstetric History 3 C-sections- first was full term for failure to progress Past Surgical History Narrative Surgical 3 Cholecystectomy Family History Narrative Family History None Social History Alcohol Use: No Tobacco Use: No Substance Abuse: No Allergies-Medications (Allergen,Severity, Reaction): Coded Allergies: acetaminophen (Unverified Allergy, Unknown, RASH, 01/31/17) oxycodone (Unverified Allergy, Unknown, RASH, 01/31/17) Home Meds Active Scripts Ranitidine (Ranitidine) 150 Mg Tab, 150 MG PO BID for Heartburn Management, #60 TAB 0 Refills Prov:Francois Hansen MD, R3 06/27/17 Doxylamine-Pyridoxine (Diclegis) 10-10 Mg Tab, 1 TAB PO HS, #30 TAB Prov:Francois Hansen MD, R3 06/27/17 Ondansetron Odt (Zofran Odt) 8 Mg Tab, 8 MG SL Q12HR Y for NAUSEA OR VOMITING, # 30 TAB 0 Refills Prov:Francois Hansen MD, R3 06/27/17 Enoxaparin Inj (Lovenox Inj) 150 Mg/Ml Syr, 150 MG SQ BID for Blood Clot Prevention for 90 Days, SYRINGE 0 Refills Prov:Nima Childers MD 04/24/17 Ondansetron Odt (Zofran Odt) 4 Mg Tab, 4 MG SL Q6HR Y for Nausea/Vomiting, #12 TAB 0 Refills Prov:Brayan Augsutin MD 11/23/16 Reported Medications Tramadol (Tramadol) 50 Mg Tab, 50 MG PO Q6H Y for PAIN, TAB 0 Refills 06/26/16 Review of Systems General / Constitutional: No: Fever, Chills Eyes: No: Blurred Vision HENT: No: Headaches, Vertigo Cardiovascular: No: Chest Pain or Discomfort Respiratory: No: Short of Breath Gastrointestinal: Nausea, Vomiting, Abdominal Pain, No: Diarrhea Genitourinary: No: Urgency, Dysuria Skin: No Rash Neurologic: No: Weakness Psychiatric: No: Anxiety, Depression Physical Exam Vital Signs Date Time Temp Pulse Resp B/P (MAP) Pulse Ox O2 Delivery O2 Flow Rate FiO2 06/27/17 08:11 102 90/56 (67) 06/27/17 07:23 98.8 106 20 145/81 (102) 98 Narrative GENERAL: Well-nourished, well-developed patient. SKIN: Warm and dry. EYES: No scleral icterus. No injection or drainage. ENT: No nasal drainage noted. Mucous membranes pink. Airway patent. CARDIOVASCULAR: Regular rate and rhythm without murmurs. Normal perfusion peripherally RESPIRATORY: CTAB; normal rate EXTREMITIES: No cyanosis or edema. BACK: No CVA tenderness. NEUROLOGICAL: Awake and alert. Motor and sensory function grossly within normal limits. ABDOMEN/GI: Abdomen soft, some epigastric and LLQ tenderness to palpation, bowel sounds present, no rebound, no guarding Gravid FHTs: HR 140's Data Data Orders Orders Vital Signs (Adult) .ON ADMISSION (06/27/17 08:15) ^ Labor Status (06/27/17 08:15) Urinalysis - C+S If Indicated (06/27/17 08:15) ^ Non Stress Test (06/27/17 08:15) Diet Liquid (06/27/17 Breakfast) ^ Hydration (06/27/17 08:15) Comprehensive Metabolic Panel (06/27/17 08:15) Lactated Ringer's 1000 Ml Inj (Lr 1000 M (06/27/17 08:15) Ondansetron Inj (Zofran Inj) (06/27/17 08:15) Ob/Psych Drug Screen, Urine (06/27/17 08:15) Complete Blood Count With Diff (06/27/17 08:15) Labs Laboratory Tests Test 06/27/17 08:10 White Blood Count 9.6 Red Blood Count 3.83 Hemoglobin 10.1 Hematocrit 29.9 Mean Corpuscular Volume 78.0 Mean Corpuscular Hemoglobin 26.3 Mean Corpuscular Hemoglobin Concent 33.8 Red Cell Distribution Width 14.4 Platelet Count 371 Mean Platelet Volume 7.4 Neutrophils (%) (Auto) 77.8 Lymphocytes (%) (Auto) 17.6 Monocytes (%) (Auto) 3.8 Eosinophils (%) (Auto) 0.2 Basophils (%) (Auto) 0.6 Neutrophils # (Auto) 7.5 Lymphocytes # (Auto) 1.7 Monocytes # (Auto) 0.4 Eosinophils # (Auto) 0.0 Basophils # (Auto) 0.1 CBC Comment DIFF FINAL Differential Comment Urine Color YELLOW Urine Turbidity HAZY Urine pH 6.5 Urine Specific [place] 1.021 Urine Protein TRACE Urine Glucose (UA) NEG Urine Ketones NEG Urine Occult Blood NEG Urine Nitrite NEG Urine Bilirubin NEG Urine Urobilinogen LESS THAN 2.0 Urine Leukocyte Esterase NEG Urine RBC 4 Urine WBC 2 Urine Squamous Epithelial Cells 10 Urine Bacteria RARE Urine Mucus FEW Microscopic Urinalysis Comment CULT NOT INDICATED Blood Urea Nitrogen 8 Creatinine 0.44 Random Glucose 137 Total Protein 7.8 Albumin 2.7 Calcium Level 8.9 Alkaline Phosphatase 58 Aspartate Amino Transf (AST/SGOT) 5 Alanine Aminotransferase (ALT/SGPT) 15 Total Bilirubin 0.2 Sodium Level 134 Potassium Level 3.6 Chloride Level 101 Carbon Dioxide Level 24.3 Anion Gap 9 Estimat Glomerular Filtration Rate 203 Urine Opiates Screen NEG Urine Barbiturates Screen NEG Urine Amphetamines Screen NEG Urine Benzodiazepines Screen NEG Urine Cocaine Screen NEG Urine Cannabinoids Screen NEG MDM Medical Record Reviewed: Yes Narrative Course / MDM 31 yo at 20 4/7 weeks who presents with nausea/vomiting which has recently been worsening Assessment: -FHT in 140's -VS stable -Nonspecific abdominal pain on exam Plan: -Patient started on LR bolus -Patient given IV Zofran -CBC, CMP, UA, UDS obtained Interval: -Labs resulted: CMP- Na 134, K 3.6, Cr 0.44, glucose 137, LFT'sL AST 5, ALT 15, ALKP58, Albumin 2.7, BILI 0.2 CBC- Hgb 10.1, WBC 9.6, PLT 371 UA benign -Patient felt better after IVF and Zofran but has some nausea with lela suzi Plan: -Patient feeling stable for discharge home; will plan for patient to be discharged on oral Zofran. Will also add Ranitidine and refill Diclegis -Patient will return to OB ED or provider with persistent pain or vomiting -Patient counselled to f/u regarding hyperglycemia on random CMP Diagnosis Diagnosis: Primary Impression: Nausea/vomiting in Additional Impression: Abdominal pain Disposition: 01 DISCHARGE HOME Condition: Stable Scripts Ranitidine (Ranitidine) 150 Mg Tab 150 MG PO BID for Heartburn Management, #60 TAB 0 Refills Prov: Francois Hansen MD, R3 06/27/17 Doxylamine-Pyridoxine (Diclegis) 10-10 Mg Tab 1 TAB PO HS, #30 TAB Prov: Francois Hansen MD, R3 06/27/17 Ondansetron Odt (Zofran Odt) 8 Mg Tab 8 MG SL Q12HR Y for NAUSEA OR VOMITING, #30 TAB 0 Refills Prov: Francois Hansen MD, R3 06/27/17 Patient Instructions: Abdominal Pain in (ED), General Instructions, Nausea and Vomiting in (ED) Francois Hansen MD, R3 Jun 27, 2017 11:38
== END 2017-06-27 11:49 | disposition home or self-care (01) ==
LOC: HOBED 07:15
DX: O21.9 Vomiting of pregnancy, unspecified (principal); R10.9 Unspecified abdominal pain; Z3A.20 20 weeks gestation of pregnancy
CPT/HCPCS: 80053; 80307; 81001; 85025; 96361; 96374; 99284; G0481; J2405; J7120